=== PATIENT | male | born 1950 ===

== ENCOUNTER 2016-06-04 01:11 | Emergency (ER) | payer MEDICAID, OTHER ==
[2016-06-04 01:11] VITALS: PULSE 82; BMI 107.6
--- NOTE | 2016-06-04 02:50 | C.PDOC ---
History Of Present Illness 65 year old patient presents to the ED complaining of a laceration to his left eye eyebrow after falling prior to arrival. Patient admits to drinking alcohol tonight. Patient denies any vomiting. - HPI Time Seen by Provider: 06/04/16 02:12 Chief Complaint (Nursing): Trauma History Per: Patient History/Exam Limitations: intoxication Onset/Duration Of Symptoms: Hrs (prior to arrival) Severity: Moderate Pain Scale Rating Of: 4 Recent travel outside of the [place]: No Past Medical History Reviewed: Historical Data, Nursing Documentation, Vital Signs Vital Signs: Last Vital Signs Temp 98.1 F 06/04/16 06:30 Pulse 102 H 06/04/16 06:50 Resp 20 06/04/16 06:30 BP 127/78 06/04/16 06:30 Pulse Ox 99 06/04/16 06:50 - Medical History PMH: Anxiety, Atrial Fibrillation, CHF, Gastritis, HTN, Chronic Pain (Leg) - [facility] Procedures DETOXIFICATION SERVICES FOR SUBSTANCE ABUSE TREATMENT (09/28/15) INSERTION OF INFUSION DEV INTO SUP VENA CAVA, PERC APPROACH (07/03/15) MEASURE CARDIAC SAMPL & PRESSURE, BILATERAL, PERC (06/09/15) PLAIN RADIOGRAPHY OF R & L HEART USING L OSM CONTRAST (06/09/15) ULTRASONOGRAPHY OF RIGHT AND LEFT HEART, TRANSESOPHAGEAL (06/09/15) Family History: States: Unknown Family Hx - Social History Hx Tobacco Use: Yes Hx Alcohol Use: Yes Hx Substance Use: No - Immunization History Hx Tetanus Toxoid Vaccination: No Hx Influenza Vaccination: No Hx Pneumococcal Vaccination: No Review Of Systems Except As Marked, All Systems Reviewed And Found Negative. Constitutional: Positive for: Other (intoxicated) Gastrointestinal: Negative for: Vomiting Skin: Positive for: Other (laceration to left eyebrow) Physical Exam - Physical Exam Appears: Non-toxic, No Acute Distress, Other (intoxicated) Skin: Warm, Dry Head: Normacephalic, Laceration (3 cm stellate shaped laceration to the upper left eyebrow and lid region), Other ((-)periorbital ecchymosis (-)facial bone tenderness ) Eye(s): bilateral: EOMI (intact) Oral Mucosa: Moist Neck: Supple Chest: Symmetrical Cardiovascular: Rhythm Regular Respiratory: No Accessory Muscle Use Extremity: Normal ROM, No Pedal Edema, No Calf Tenderness, No Deformity, No Swelling ED Course And Treatment ECG: Interpreted By Me, Viewed By Me ECG Rhythm: Sinus Tachycardia (107) O2 Sat by Pulse Oximetry: 98 (RA) Pulse Ox Interpretation: Normal - CT Scan/US Head CT Other Rad Studies (CT/US): Read By Radiologist (Amanda Garner MD), Radiology Report Reviewed CT/US Interpretation: EXAM: CT Head Without Intravenous Contrast. CLINICAL HISTORY: 65 years old, male; Pain; Headache and other: Up left eye open; Patient HX: 11-06-15; Additional info: Fall, intoxication. TECHNIQUE: Axial computed tomography images of the head/brain without intravenous contrast. This CT exam. was performed using one or more of the following dose reduction techniques: automated exposure. control, adjustment of the mA and/or kV according to patient size, and/or use of iterative. reconstruction technique. EXAM DATE/TIME: 06/04/2016 2:30 AM. COMPARISON: Prior head CT of 11/06/2015. FINDINGS: LIMITATIONS: Exam is limited by mild to moderate streak/motion artifact. BRAIN: Stable small area of encephalomalacia in the right frontal lobe anteriorly. This could be. related to a chronic infarct or remote traumatic injury. Focal areas of low density seen in the basal. ganglia bilaterally, most compatible with multiple, bilateral old/chronic lacunar infarcts. Areas of. hypodensity in the white matter bilaterally, nonspecific in appearance, but most likely representing. chronic small vessel ischemic changes, in a patient of this age. Diffuse, age-related cortical atrophy. and ventriculomegaly. No significant acute abnormality identified. No acute hemorrhage seen within the brain. No acute. extra-axial fluid collections visualized. No evidence of significant mass effect within the brain. VENTRICLES : See above. BONES/JOINTS: Stable appearance of chronic fractures involving the nasal bones bilaterally and. the right medial orbital wall. No acute fractures are seen. SOFT TISSUES: Mild swelling in the left super orbital soft tissues. SINUSES: Visualized paranasal sinuses appear clear. MASTOID AIR CELLS : Stable small amount of fluid in the left mastoid air cells inferiorly, consistent. with minimal left mastoiditis. IMPRESSION: - No evidence of acute intracranial injury, allowing for motion artifact. - Old/chronic facial bone fractures, as described. - See above for remaining findings. Progress Note: Head CT taken. Medical Decision Making Medical Decision Making: At d/c pt found to be tachycardic at 138, but no complaints. no hand tremors, diaphoresis, Temp normal. Labs , EKG, IVF ordered along with librium and pt will be reevaluated later by Dr Mosley EKG reviewed mild sinus tach at 107 Pt is ambulatory with walker , AAOx3 and will be d/c home Disposition Counseled Patient/Family Regarding: Diagnosis, Need For Followup - Disposition Disposition: HOME/ ROUTINE Disposition Time: 06:35 Condition: STABLE Instructions: Head Injury (ED) - Clinical Impression Clinical Impression: Alcohol abuse, Facial laceration, Head injury - PA / ALLERGY AND IMMUNOLOGY SPECIALIST / Resident Statement MD/DO has reviewed & agrees with the documentation as recorded. - Scribe Statement The provider has reviewed the documentation as recorded by the Scribe Latia Templeton All medical record entries made by the Scribe were at my direction and personally dictated by me. I have reviewed the chart and agree that the record accurately reflects my personal performance of the history, physical exam, medical decision making, and the department course for this patient. I have also personally directed, reviewed, and agree with the discharge instructions and disposition.
--- NOTE | 2016-06-04 03:54 | CT ---
EXAM: CT Head Without Intravenous Contrast CLINICAL HISTORY: 65 years old, male; Pain; Headache and other: Up left eye open; Patient HX: 11-06-15; Additional info: Fall, intoxication TECHNIQUE: Axial computed tomography images of the head/brain without intravenous contrast. This CT exam was performed using one or more of the following dose reduction techniques: automated exposure control, adjustment of the mA and/or kV according to patient size, and/or use of iterative reconstruction technique. EXAM DATE/TIME: 06/04/2016 2:30 AM COMPARISON: Prior head CT of 11/06/2015 FINDINGS: LIMITATIONS: Exam is limited by mild to moderate streak/motion artifact. BRAIN: Stable small area of encephalomalacia in the right frontal lobe anteriorly. This could be related to a chronic infarct or remote traumatic injury. Focal areas of low density seen in the basal ganglia bilaterally, most compatible with multiple, bilateral old/chronic lacunar infarcts. Areas of hypodensity in the white matter bilaterally, nonspecific in appearance, but most likely representing chronic small vessel ischemic changes, in a patient of this age. Diffuse, age-related cortical atrophy and ventriculomegaly. No significant acute abnormality identified. No acute hemorrhage seen within the brain. No acute extra-axial fluid collections visualized. No evidence of significant mass effect within the brain. VENTRICLES: See above. BONES/JOINTS: Stable appearance of chronic fractures involving the nasal bones bilaterally and the right medial orbital wall. No acute fractures are seen. SOFT TISSUES: Mild swelling in the left super orbital soft tissues. SINUSES: Visualized paranasal sinuses appear clear. MASTOID AIR CELLS: Stable small amount of fluid in the left mastoid air cells inferiorly, consistent with minimal left mastoiditis. IMPRESSION: - No evidence of acute intracranial injury, allowing for motion artifact. - Old/chronic facial bone fractures, as described. - See above for remaining findings.
[2016-06-04] MEDS ORDERED: Sodium Chloride 0.9% 500 ML IV ONE (06:37)
[2016-06-04 06:49] VITALS: BP 127/78; RESP 20; TEMP 98.1
[2016-06-04 06:50] VITALS: PULSE 102
[2016-06-04 07:01] VITALS: O2SAT 98
--- NOTE | 2016-06-05 14:48 | CARD ---
APPROVED REPORT EKG Measurement Heart [id number] <Conclusion> Atrial flutter with variable AV block Left anterior fascicular block Septal infarct, age undetermined Abnormal ECG
== END 2016-06-04 07:28 | disposition home or self-care (01) ==
LOC: C.ER 01:11
DX: S01.112A Laceration without foreign body of left eyelid and periocular area, initial encounter (principal); W19.XXXA Unspecified fall, initial encounter; Y92.9 Unspecified place or not applicable

== ENCOUNTER 2016-06-20 21:57 | Observation (INO) | payer MEDICARE, OTHER, MEDICAID ==
[2016-06-20 21:58] VITALS: PULSE 82; BMI 107.6
--- NOTE | 2016-06-21 00:13 | C.PDOC ---
History Of Present Illness Patient is a 66 year old male brought in by EMS after he was found intoxicated and sleeping in the streets. Patient states he is homeless and admits to ETOH use today. Denies any physical complaints at this time. Chief Complaint (Nursing): Substance Abuse History Per: Patient, EMS History/Exam Limitations: no limitations Onset/Duration Of Symptoms: Hrs Current Symptoms Are (Timing): Still Present Suicide/Self Injury Attempted (Context): None Modifying Factor(s): Alcohol Past Medical History Reviewed: Historical Data, Nursing Documentation, Vital Signs Vital Signs: Last Vital Signs Temp 98.1 F 06/21/16 01:35 Pulse 79 06/21/16 01:35 Resp 20 06/21/16 01:35 BP 121/73 06/21/16 01:35 Pulse Ox 100 06/21/16 05:43 - Medical History PMH: Anxiety, Atrial Fibrillation, CHF, Gastritis, HTN, Chronic Pain (Leg) - [facility] Procedures DETOXIFICATION SERVICES FOR SUBSTANCE ABUSE TREATMENT (09/28/15) INSERTION OF INFUSION DEV INTO SUP VENA CAVA, PERC APPROACH (07/03/15) MEASURE CARDIAC SAMPL & PRESSURE, BILATERAL, PERC (06/09/15) PLAIN RADIOGRAPHY OF R & L HEART USING L OSM CONTRAST (06/09/15) ULTRASONOGRAPHY OF RIGHT AND LEFT HEART, TRANSESOPHAGEAL (06/09/15) Family History: States: Unknown Family Hx - Social History Hx Tobacco Use: Yes Hx Alcohol Use: Yes Hx Substance Use: No - Immunization History Hx Tetanus Toxoid Vaccination: No Hx Influenza Vaccination: No Hx Pneumococcal Vaccination: No Review Of Systems Constitutional: Negative for: Fever, Chills Gastrointestinal: Negative for: Nausea, Vomiting Neurological: Positive for: Other (Acute Intoxication) Physical Exam - Physical Exam Appears: Well, Non-toxic, Other (ETOH on breath) Skin: Normal Color, Warm, Dry Head: Atraumatic, Normacephalic Oral Mucosa: Moist Chest: Symmetrical, No Tenderness Cardiovascular: Rhythm Regular, No Murmur Respiratory: Normal Breath Sounds, No Rales, No Rhonchi, No Wheezing Gastrointestinal/Abdominal: Soft, No Tenderness Neurological/Psych: Oriented x3, Normal Speech, Normal Cognition ED Course And Treatment O2 Sat by Pulse Oximetry: 100 (Room air) Pulse Ox Interpretation: Normal ED OBSERVATION Discharge: Yes Date of observation admission: 06/21/16 Time of observation admission: 22:00 - Observation admission statement Patient is being placed in observation because:: Acute ETOH intoxication - Goals of Observation Goals of observation are:: Sobriety - Progress Note Progress Note: 06/21/16 05:41 Patient subsequently alert, conscious, orientated, for discharge with instruction of alcohol abuse. Disposition - Disposition Disposition: HOME/ ROUTINE Disposition Time: 06:00 Condition: STABLE - POA Present On Arrival: None - Clinical Impression Clinical Impression: Alcohol abuse - Scribe Statement The provider has reviewed the documentation as recorded by the Scribshay Joy All medical record entries made by the Linhibshay were at my direction and personally dictated by me. I have reviewed the chart and agree that the record accurately reflects my personal performance of the history, physical exam, medical decision making, and the department course for this patient. I have also personally directed, reviewed, and agree with the discharge instructions and disposition.
[2016-06-21 06:01] VITALS: O2SAT 96
[2016-06-21 06:03] VITALS: BP 103/55; PULSE 106; RESP 20; TEMP 98.5
== END 2016-06-21 05:38 | disposition home or self-care (01) ==
LOC: C.ER 21:57 → SUPCPDRO 21:57 → C.9OBSV 06-21 00:10
PROVIDERS: ADMIT Emergency Medicine; ATTEND Emergency Medicine
DX: F10.120 Alcohol abuse with intoxication, uncomplicated (principal); Y90.9 Presence of alcohol in blood, level not specified; Z59.0 Homelessness
CPT/HCPCS: 82948; 99285; G0378

== ENCOUNTER 2016-07-01 15:28 | Inpatient (IN) | payer MEDICARE, OTHER ==
[2016-07-01 15:45] VITALS: BMI 31.1
--- NOTE | 2016-07-01 18:41 | C.PDOC ---
History Of Present Illness 66 y/o male BIBA for public intoxication and malingering. Patient complains of chronic leg pain and swollen penile area for unknown amount of time. Patient with many ER visits for intoxication. Denies any trauma, fall, or injury. No other complaints at this time. Time Seen by Provider: 07/01/16 17:19 Chief Complaint (Nursing): Lower Extremity Problem/Injury History Per: Patient History/Exam Limitations: no limitations Onset/Duration Of Symptoms: Unknown Current Symptoms Are (Timing): Still Present Reports Recently: Seen In ED Recent travel outside of the [place]: No Past Medical History Reviewed: Historical Data, Nursing Documentation, Vital Signs Vital Signs: Last Vital Signs Temp 98.5 F 07/01/16 18:40 Pulse 126 H 07/01/16 23:10 Resp 19 07/01/16 23:10 BP 136/77 07/01/16 23:10 Pulse Ox 98 07/01/16 23:10 - Medical History PMH: Anxiety, Atrial Fibrillation, CHF, Gastritis, HTN, Chronic Pain (Leg) - [facility] Procedures DETOXIFICATION SERVICES FOR SUBSTANCE ABUSE TREATMENT (09/28/15) INSERTION OF INFUSION DEV INTO SUP VENA CAVA, PERC APPROACH (07/03/15) MEASURE CARDIAC SAMPL & PRESSURE, BILATERAL, PERC (06/09/15) PLAIN RADIOGRAPHY OF R & L HEART USING L OSM CONTRAST (06/09/15) ULTRASONOGRAPHY OF RIGHT AND LEFT HEART, TRANSESOPHAGEAL (06/09/15) Family History: States: Unknown Family Hx - Social History Hx Tobacco Use: Yes Hx Alcohol Use: Yes Hx Substance Use: No - Immunization History Hx Tetanus Toxoid Vaccination: No Hx Influenza Vaccination: No Hx Pneumococcal Vaccination: No Review Of Systems Except As Marked, All Systems Reviewed And Found Negative. Cardiovascular: Negative for: Chest Pain Respiratory: Negative for: Cough, Shortness of Breath Gastrointestinal: Negative for: Nausea, Vomiting Genitourinary: Positive for: Other (penile area swelling) Musculoskeletal: Positive for: Leg Pain (chronic) Skin: Negative for: Rash Physical Exam - Physical Exam Appears: No Acute Distress, Other (intoxicated) Skin: Warm, Dry Head: Atraumatic, Normacephalic Chest: Symmetrical Cardiovascular: Rhythm Regular Respiratory: Normal Breath Sounds, No Rales, No Rhonchi, No Wheezing Gastrointestinal/Abdominal: Soft, No Tenderness, No Guarding, No Rebound, Other (pitting edema to bilateral flanks) Back: No CVA Tenderness Male Genital: Other (grossly edematous penis and scrotum) Extremity: Normal ROM, Other (pitting edema to lower extremities with discoloration w/o erythema) Neurological/Psych: Oriented x3, Normal Speech ED Course And Treatment - Laboratory Results Result Diagrams: 07/01/16 19:25 07/01/16 19:25 Lab Interpretation: Abnormal (+ anemia,) ECG: Interpreted By Nd ECG Rhythm: Sinus Tachycardia ECG Interpretation: Abnormal Rate From EC O2 Sat by Pulse Oximetry: 98 (RA) Pulse Ox Interpretation: Normal - Radiology CXR: Interpreted by Nd CXR Interpretation: Yes: No Acute Disease - CT Scan/US CT Abdomen/Pelvis Other Rad Studies (CT/US): Read By Radiologist, Radiology Report Reviewed CT/US Interpretation: IMPRESSION: 1. There are small bilateral pleural effusions. 2. The heart as visualized appears mildly enlarged. 3. Partially imaged pericardial effusion appears to measure 24 mm in thickness on series 2, image 1. 4. There is mild abdominal pelvic ascites with mesenteric edema. There is distention of diffuse. anasarca. 5. Liver demonstrates nodular surface contour compatible with cirrhosis. 6. Spleen is slightly enlarged measuring 13.1 CM anteroposterior. 7. Abdominal aorta and branches demonstrate severe atherosclerotic calcification. No abdominal. aortic aneurysm. There is suggestion of a high grade stenosis near the origin of the superior. mesenteric artery. 8. Probable high grade stenoses of both common iliac arteries. Probable additional stenoses more. distally. Consider further evaluation of the abdominal aorta and lower extremities with dedicated CTA. if clinically indicated. 9. There is mild bilateral inguinal lymphadenopathy. Progress Note: CT abdomen/pelvis, EKG, CxR, bloodwork ordered. Pt given Lasix 20mg IVP. Reevaluation Time: 22:38 Reassessment Condition: Improved - Physician Consult Information Outcome Of Conversation: 2225: d/w Dr. Ashley- prior admission 04/12, ok to tele Obs Medical Decision Making Medical Decision Making: homeless alcoholic, many prior evals for same. chronic leg pains/reddness LOW susp of DVT/cellulitis CT vascular portions concerning for iliac stenosis which may be causing claudication and his leg weakness with minimal effort Tachycardia and ETOH level zero- concerning for withdrawal- Librium PO given, consider CIWA protocol. Daughter @ bedside encouraging long-term placement when acute phase hospitalization and stabilization completed. d-dimer elevated, LOW susp of PE considering all other pathology Lovenox SQ 1mg/kg given once, consider further tx or eval for PE PRN Disposition Doctor Will See Patient In The: Office Counseled Patient/Family Regarding: Studies Performed, Diagnosis - Disposition Referrals: Alcoholics Anonymous [Outside] [facility] [Outside] [facility] [Outside] Disposition: HOME/ ROUTINE Disposition Time: 18:41 Condition: GOOD Additional Instructions: follow-up in our outpatient Clinic as needed. Instructions: Abuse of Alcohol (ED) - Clinical Impression Clinical Impression: Alcohol abuse, Tachycardia, Chronic leg pain, Cirrhosis of liver with ascites - Scribe Statement The provider has reviewed the documentation as recorded by the Katie White Provider Scribe Attestation: All medical record entries made by the Scribe were at my direction and personally dictated by me. I have reviewed the chart and agree that the record accurately reflects my personal performance of the history, physical exam, medical decision making, and the department course for this patient. I have also personally directed, reviewed, and agree with the discharge instructions and disposition.
[2016-07-01 19:33] LABS: BASO # 0.1 K/uL (0.0-0.2); EOS % 0.7 % (0.0-4.0); HEMATOCRIT 31.2 % (35.0-51.0); LYMPH # 0.6 K/uL (1.0-4.3); LYMPH % 8.9 % (20.0-40.0); MEAN CELL VOLUME 78.7 fL (80.0-94.0); MEAN CORPUSCULAR HEMOGLOBIN 24.7 pg (27.0-31.0); MEAN CORPUSCULAR HGB CONC 31.4 g/dL (33.0-37.0); MEAN PLATELET VOLUME 8.2 fL (7.2-11.7); MONO # 0.8 K/uL (0.0-0.8); MONO % 11.3 % (0.0-10.0); NRBC % 0.1 % (0.0-2.0); PLATELET COUNT 261 K/uL (130-400); WHITE BLOOD COUNT 6.9 K/uL (4.8-10.8)
[2016-07-01 19:44] LABS: CHLORIDE 102 mmol/L (98-107)
[2016-07-01 19:45] LABS: POTASSIUM 4.6 mmol/L (3.6-5.2); SODIUM 136 mmol/L (132-148)
[2016-07-01 19:47] LABS: AST/SGOT 46 U/L (17-59); BILIRUBIN,TOTAL 1.6 mg/dL (0.2-1.3); CARBON DIOXIDE 21 mmol/L (22-30); GFR AFRICAN-AMERICAN > 60; TOTAL PROTEIN 7.6 g/dL (6.3-8.3)
[2016-07-01 19:48] LABS: ALCOHOL SERUM < 10 mg/dl (0-10); ALKALINE PHOSPHATASE 122 U/L (38-126); ALT/SGPT 22 U/L (21-72); BLOOD UREA NITROGEN 20 mg/dL (9-20); CALCIUM 8.7 mg/dl (8.6-10.4); GLUCOSE,RANDOM 90 mg/dL (75-110)
[2016-07-01 20:05] LABS: RBC URINE 2 /hpf (0-3); URINE BACTERIA RARE (<OCC); URINE BILIRUBIN NEGATIVE (NEGATIVE); URINE BLOOD NEGATIVE (NEGATIVE); URINE GLUCOSE (UA) NORMAL (Normal); URINE KETONE TRACE mg/dL (NEGATIVE); URINE LEUKOCYTE ESTERASE TRACE Leu/uL (Negative); URINE PROTEIN 1+ mg/dL (NEGATIVE); WBC URINE 4 /hpf (0-5)
[2016-07-01] MEDS ORDERED: Iohexol 300 100 ML IJ ONE (20:11)
[2016-07-01 20:21] LABS: THYROID STIMULATING HORMONE 0.97 mIU/L (0.46-4.68)
[2016-07-01 20:24] LABS: URINE COLOR YELLOW (YELLOW)
[2016-07-01 20:34] LABS: INR 1.6
--- NOTE | 2016-07-01 22:30 | CT ---
EXAM: CT Abdomen and Pelvis With Intravenous Contrast CLINICAL HISTORY: 66 years old, male; Pain; Abdominal pain; Generalized; Additional info: Abd ascites vs edema, alcoholic TECHNIQUE: Axial computed tomography images of the abdomen and pelvis with intravenous contrast. This CT exam was performed using one or more of the following dose reduction techniques: automated exposure control, adjustment of the mA and/or kV according to patient size, and/or use of iterative reconstruction technique. Coronal and sagittal reformatted images were created and reviewed. CONTRAST: 100 mL of omnipaque 300 administered intravenously. COMPARISON: CT - ABD PELVIS W/O PO OR IV CONT 09/28/2015 3:16:00 AM FINDINGS: Lower thorax: There are small bilateral pleural effusions. The heart as visualized appears mildly enlarged. Partially imaged pericardial effusion appears to measure 24 mm in thickness on series 2, image 1. ABDOMEN: Liver: Liver demonstrates nodular surface contour compatible with cirrhosis. Gallbladder and bile ducts: Unremarkable. No calcified stones. No ductal dilation. Pancreas: The pancreas is normal. No ductal dilation. Spleen: Spleen is slightly enlarged measuring 13.1 CM anteroposterior. Adrenals: The adrenal glands are normal. Kidneys and ureters: The kidneys are normal. No hydronephrosis. Stomach and bowel: Stomach is decompressed. There are least 2 small fat containing periumbilical hernias. One of these also contains a slightly involved nonobstructed bowel loop. There is no evidence of intestinal obstruction. No mucosal thickening. Appendix: No findings to suggest acute appendicitis. PELVIS: Bladder: Bladder is decompressed. Reproductive: The prostate gland and seminal vesicles are normal. ABDOMEN and PELVIS: Intraperitoneal space: There is mild abdominal pelvic ascites with mesenteric edema. There is distention of diffuse anasarca. There is no free intraperitoneal air. Bones/joints: There are moderate degenerative changes present. There is mild diffuse osteopenia. No acute fracture. No dislocation. Soft tissues: Unremarkable. Vasculature: Abdominal aorta and branches demonstrate severe atherosclerotic calcification. No abdominal aortic aneurysm. There is suggestion of a high grade stenosis near the origin of the superior mesenteric artery. Probable high grade stenoses of both common iliac arteries. Probable additional stenoses more distally. Consider further evaluation of the abdominal aorta and lower extremities with dedicated CTA if clinically indicated. Lymph nodes: There is mild bilateral inguinal lymphadenopathy. IMPRESSION: 1. There are small bilateral pleural effusions. 2. The heart as visualized appears mildly enlarged. 3. Partially imaged pericardial effusion appears to measure 24 mm in thickness on series 2, image 1. 4. There is mild abdominal pelvic ascites with mesenteric edema. There is distention of diffuse anasarca. 5. Liver demonstrates nodular surface contour compatible with cirrhosis. 6. Spleen is slightly enlarged measuring 13.1 CM anteroposterior. 7. Abdominal aorta and branches demonstrate severe atherosclerotic calcification. No abdominal aortic aneurysm. There is suggestion of a high grade stenosis near the origin of the superior mesenteric artery. 8. Probable high grade stenoses of both common iliac arteries. Probable additional stenoses more distally. Consider further evaluation of the abdominal aorta and lower extremities with dedicated CTA if clinically indicated. 9. There is mild bilateral inguinal lymphadenopathy. S.
[2016-07-01] MEDS ORDERED: Enoxaparin 40 mg Syringe SC STA (23:13)
[2016-07-01] MEDS ORDERED: Enoxaparin 40 mg Syringe ONE (23:27)
[2016-07-01] MEDS ORDERED: Enoxaparin 30 mg Syringe ONE (23:27)
[2016-07-01 23:50] LABS: NEUTROPHIL 72 % (50-75); TOTAL CELLS COUNTED 100
[2016-07-01 23:51] LABS: GIANT PLATELETS PRESENT; LARGE PLATELETS PRESENT; SMUDGE CELLS PRESENT
--- NOTE | 2016-07-02 08:43 | RAD ---
PROCEDURE: CHEST RADIOGRAPH, 1 VIEW HISTORY: SOB COMPARISON: 04/05/2016 FINDINGS: LUNGS: Mild venous congestion. PLEURA: No pneumothorax or pleural fluid seen. CARDIOVASCULAR: Cardiomegaly. Calcification at the aortic knob. OSSEOUS STRUCTURES: Fracture deformity of the left proximal humerus. VISUALIZED UPPER ABDOMEN: Normal. OTHER FINDINGS: None. IMPRESSION: Mild venous congestion. Cardiomegaly. Fracture deformity of the left proximal humerus.
--- NOTE | 2016-07-02 10:22 | CARD ---
APPROVED REPORT EKG Measurement Heart [id number] CA 232P [id number] <Conclusion> Sinus tachycardia with 1st degree AV block Right superior axis deviation Anterior infarct, age undetermined Abnormal ECG
--- NOTE | 2016-07-02 14:16 | CP.PCM.HP ---
History of Present Illness - History of Present Illness History of Present Illness: COMPREHENSIVE HISTORY & PHYSICAL EXAM HPI ONE OF THE MULTIPLE ADMISSION FOR THIS PT. PT WAS EVALUATED IN ER WITH MULTIPLE MEDICAL PROBLEMS , NON COMPLIANT AND "HOMELESS" WITH SEVERE ALCOHOL PROBLEM . CURRENTLY PT'S FAMILY MEMBERS ARE CONCERNED AND WANTS TELETYPESETTER MONITOR PLACEMENT PAST HIST. CAD /HTN/CRROHSIS OF LIVER/SEVERE GEN. ATHEROSCLEROSIS INVOLVING LEFT SUBCLAVIAN , LOWER EXT AND POSSILBE SUP. MESENTRIC ARTERY./A. FIB/ GEN ANASARCA PERSONAL HIST: Smoking. Y Alcohol. Y Allergy N Travel_- . FAMILY HIST : ROS : Constitutional: WT. GAIN SOB EDEMA OF LEGS Eyes: Negative for redness, swelling, itching, discharge, vision changes, blurry vision, double vision, glaucoma, cataracts, Ears: Negative for hearing loss, ringing, , tinnitus, vertigo Nose: Negative for rhinorrhea, stuffiness, sniffing, itching, postnasal drip, discoloration, nasal congestion and epistaxis. Throat: Negative for throat clearing, sore throat, hoarseness, difficulty swallowing and difficulty speaking. Respiratory: SOB WHEEZING Cardiovascular: Negative for chest pain, palpitations, POS orthopnea, PND, Edema of legs, leg cramps, NO angina, claudication, , irregular heartbeat, Neurology: Negative for irritability, muscle weakness, numbness and tingling, seizures, tremors, migraines, slurred speech, syncope, memory loss, mood changes , recurrent headaches Gastrointestinal ABD. DISTENSION EXTENDING TO GENITALIA Genitourinary: Negative for frequent urination, hematuria, discharge, incontinence, urinary retention, frequent UTI, Psychiatric: Negative for depression, anxiety/panic, suicidal tendencies, Musculoskeletal: Negative for swollen joints, back pain, , neck pain, morning stiffness of joints, . Skin: Negative for rash, ulcers, itching, dry skin and pigmented lesions. P/E: Constitutional: Appears stated age and in no apparent distress. Head: Normocephalic. Ears: External ear canals patent without inflammation. Tympanic membranes intact with normal light reflex and landmark. Eyes: Pupils are central, bilaterally equal, symmetrical and reacts to light with normal movements and no icterus or pallor. Nose: External nares are patent. Mucosa is pink Mouth-Throat: Good general appearance and condition. No post-pharyngeal/oropharyngeal erythema and tonsillar hypertrophy. Good dental hygiene. Neck-Lymphatic: Neck is supple with normal ROM, no thyromegaly, lymph nodes or masses. JVD is normal with no carotid bruit. Lungs: BASAL RALES Cardiovascular: S1 and S2 are normal with no murmurs, gallops and rub. GI Exam: ASCITES WITH SWELLING OF GENITALIA Neurology: Higher function and all cranial nerves intact, with no gross motor or sensory deficit. Superficial and deep reflexes are normal with downwards planters. No cerebellar deficit with normal gait. Musculoskeletal: No tender spots with normal curvature of the spine with no swelling or restricted ROM of the small and large joints. Extremities: Homans sign absent. Intact pulses with pitting edema, calf tenderness or skin color changes. Skin: No rash, eruptions or abnormal skin pigmentation LAB/RADIOLOGY: ASSESMENT : CIRROHSIS OF LIVER WITH PORTAL HTN CAD/HTN/A. FIB GEN. ANASARCA PLAN: SEE ORDERS Present on Admission - Present on Admission Any Indicators Present on Admission: No Past Patient History - Infectious Disease Hx of Infectious Diseases: None - Past Medical History & Family History Past Medical History?: Yes - Past Social History Smoking Status: Light Smoker < 10 Cigarettes Daily - CARDIAC Hx Atrial Fibrillation: Yes Hx Congestive Heart Failure: Yes Hx Hypertension: Yes - PULMONARY Hx Respiratory Disorders: No - NEUROLOGICAL Hx Neurological Disorder: No - HEENT Hx HEENT Problems: No - RENAL Hx Chronic Kidney Disease: No - ENDOCRINE/METABOLIC Hx Endocrine Disorders: No - HEMATOLOGICAL/ONCOLOGICAL Hx Blood Disorders: No Hx Blood Transfusions: No - INTEGUMENTARY Hx Dermatological Problems: No - MUSCULOSKELETAL/RHEUMATOLOGICAL Hx Falls: Yes - GASTROINTESTINAL Hx Gastritis: Yes - GENITOURINARY/GYNECOLOGICAL Hx Genitourinary Disorders: No - PSYCHIATRIC Hx Substance Use: No - SURGICAL HISTORY Hx Surgeries: Yes Hx Herniorrhaphy: Yes Other/Comment: abdominal surgery. no further information added by patient - ANESTHESIA Hx Anesthesia: Yes Hx Anesthesia Reactions: No Hx Malignant Hyperthermia: No Meds Allergies/Adverse Reactions: Allergies Allergy/AdvReac Type Severity Reaction Status Date / Time Penicillins Allergy RASH Verified 07/01/16 15:44 Results - Vital Signs Recent Vital Signs: Last Vital Signs Temp 98.6 F 07/02/16 08:00 Pulse 130 H 07/02/16 08:00 Resp 20 07/02/16 08:00 BP 119/71 07/02/16 12:04 Pulse Ox 95 07/02/16 08:00 - Labs Result Diagrams: 07/01/16 19:25 07/01/16 19:25
[2016-07-02] MEDS ORDERED: Enoxaparin 40 mg Syringe SC SCH ×4 (15:28→22:00)
[2016-07-02] MEDS: Albuterol-Ipratrop 3 mg / 0.5 (3 ml) UD INH SCH ×2 (16:45→19:45)
[2016-07-02] MEDS: Digoxin 250 mcg (0.25 mg) Tab PO SCH (17:35)
--- NOTE | 2016-07-02 22:58 | VASCLAB ---
PROCEDURE: Lower Extremity Venous Duplex Exam. HISTORY: DVT PRIORS: None. TECHNIQUE: Bilateral common femoral, femoral, popliteal and posterior tibial, peroneal and great saphenous veins were evaluated. Flow was assessed with color Doppler, compressibility, assessment of phasic flow and augmentation response. Report prepared by NOBLE Mcclain, RVT FINDINGS: RIGHT: 1. Common Femoral Vein: 1.1. Compressibility - Fully compressible: Thrombus - None : Flow - Phasic: Augmentation -Normal: Reflux - None. 2. Femoral Vein: 2.1. Compressibility - Fully compressible: Thrombus - None : Flow - Phasic: Augmentation -Normal: Reflux - None. 3. Popliteal Vein: 3.1. Compressibility - Fully compressible: Thrombus - None : Flow - Phasic: Augmentation -Normal: Reflux - None. 4. Posterior Tibial Vein: 4.1. Compressibility - Fully compressible: Thrombus - None: Flow - Phasic: Augmentation -Normal: Reflux - None. 5. Peroneal Vein: 5.1. Compressibility - Fully compressible: Thrombus - None: Flow - Phasic: Augmentation -Normal: Reflux - None. 6. Great Saphenous Vein: 6.1. Compressibility - Fully compressible: Thrombus - None: Flow - Phasic: Augmentation - Normal: Reflux - None. LEFT: 1. Common Femoral Vein: 1.1. Compressibility - Fully compressible: Thrombus - None: Flow - Phasic: Augmentation -Normal: Reflux - None. 2. Femoral Vein: 2.1. Compressibility - Fully compressible: Thrombus - None: Flow - Phasic: Augmentation -Normal: Reflux - None. 3. Popliteal Vein: 3.1. Compressibility - Fully compressible: Thrombus - None : Flow - Phasic: Augmentation -Normal: Reflux - None. 4. Posterior Tibial Vein: 4.1. Compressibility - Fully compressible: Thrombus - None: Flow - Phasic: Augmentation -Normal: Reflux - None. 5. Peroneal Vein: 5.1. Compressibility - Fully compressible: Thrombus - None: Flow - Phasic: Augmentation -Normal: Reflux - None. 6. Great Saphenous Vein: 6.1. Compressibility - Fully compressible: Thrombus - None: Flow - Phasic: Augmentation - Normal: Reflux - None. OTHER FINDINGS: Right: None significant. Left: None significant. IMPRESSION: Right: No evidence of deep or superficial vein thrombosis of the right lower extremity. Normal valve function noted of the right side. Left: No evidence of deep or superficial vein thrombosis of the left lower extremity. Normal valve function noted of the left side.
[2016-07-03] MEDS: Albuterol-Ipratrop 3 mg / 0.5 (3 ml) UD INH SCH ×4 (02:33→20:20)
--- NOTE | 2016-07-03 10:31 | NM ---
COMPARISON: 07/01/2016. TECHNIQUE: 5.1 mCi technetium 99-m Xe-133 Gas. 10.2 mCI technetium 99-m MAA administered intravenously. FINDINGS: VENTILATION COMPONENT: Heterogeneous ventilation with mild air trapping particularly in the right lung. PERFUSION COMPONENT: Focal subsegmental defect right upper lobe. No other suspicious findings. IMPRESSION: Low probability ventilation perfusion scan for pulmonary embolism.
[2016-07-03] MEDS: Enoxaparin 40 mg Syringe SC SCH (11:00)
--- NOTE | 2016-07-03 12:54 | CP.PCM.PN ---
Subjective - Date & Time of Evaluation Date of Evaluation: 07/03/16 Time of Evaluation: 12:52 - Subjective Subjective: CHIEF COMPLAINTS TODAY : LEG AND SCROTAL SWELLING NO SOB ROS. HEENT : N. Resp : No cough, wheezing ,pleuritic CP ,or hemoptysis Cardio : No anginal CP, PND, orthopnea, palpitation GI : No abd.pain, n/v ,diarrhea or GI bleeding . TRANSPORTATION OPERATIONS MANAGER : No headache, vertigo, focal deficit. Musculoskel : No joint swelling , Derm : No rash Psych : Normal affect. Ext : POS swelling ,calf pain PE. Pt. is alert awake in no distress. V.S As noted in the chart Head ,ear nose,throat and eyes : Normal. Neck : Supple with normal carotids. Lungs:RONCHI Heart : S1 & S2 normal with S4. No murmur. Abd : Soft non tender with normal bowel sounds. Neuro : Moves all ext. with no localized deficit. Ext : +2 EDEMA EXTENDING TO SCROTUM Derm : No rashes or decubitus ulcer. LABS/RADIOLOGY: ASSESSMENT/PLAN : ADD ALDACTONE COSMETOLOGY INSTRUCTOR CARE Objective - Vital Signs/Intake and Output Vital Signs (last 24 hours): Temp Pulse Resp BP Pulse Ox 98.0 F 70 20 125/71 92 L 07/03/16 08:43 07/03/16 11:08 07/03/16 08:43 07/03/16 09:43 07/03/16 11:08 Intake and Output: 07/03/16 07/03/16 11:59 23:59 Intake Total 310 Balance 310 - Medications Medications: Current Medications Albuterol/Ipratropium (Duoneb 3 Mg/0.5 Mg (3 Ml) Ud) 3 ml INH RQ6 [facility] Last Admin: 07/03/16 07:56 Dose: 3 ml Digoxin (Lanoxin) 0.25 mg PO DAILY@1800 [facility] Last Admin: 07/02/16 17:35 Dose: 0.25 mg Diltiazem HCl (Cardizem) 30 mg PO Q8 [facility] Last Admin: 07/03/16 05:16 Dose: 30 mg Enoxaparin Sodium (Lovenox) 40 mg SC DAILY [facility] Last Admin: 07/03/16 11:00 Dose: 40 mg Furosemide (Lasix) 40 mg IVP DAILY [facility] Last Admin: 07/03/16 09:43 Dose: 40 mg Metoprolol Tartrate (Lopressor) 50 mg PO BID [facility] Last Admin: 07/03/16 09:42 Dose: 50 mg Spironolactone (Aldactone) 25 mg PO BID [facility] - Labs Labs: PT 18.3 SECONDS (9.7-12.2) H 07/01/16 20:01 INR 1.6 07/01/16 20:01 APTT 29 SECONDS (21-34) 07/01/16 20:01
[2016-07-03 14:31] LABS: BASO # 0.1 K/uL (0.0-0.2); BASO % 0.8 % (0.0-2.0); EOS % 0.7 % (0.0-4.0); HEMATOCRIT 31.2 % (35.0-51.0); LYMPH # 0.7 K/uL (1.0-4.3); LYMPH % 10.4 % (20.0-40.0); MEAN CORPUSCULAR HEMOGLOBIN 25.2 pg (27.0-31.0); MEAN CORPUSCULAR HGB CONC 31.1 g/dL (33.0-37.0); MEAN PLATELET VOLUME 8.5 fL (7.2-11.7); MONO # 0.9 K/uL (0.0-0.8); MONO % 13.7 % (0.0-10.0); RED CELL DISTRIBUTION WIDTH 19.8 % (11.5-14.5); WHITE BLOOD COUNT 6.8 K/uL (4.8-10.8)
[2016-07-03 14:48] LABS: CHLORIDE 99 mmol/L (98-107); POTASSIUM 3.9 mmol/L (3.6-5.2); SODIUM 135 mmol/L (132-148)
[2016-07-03 14:49] LABS: ALKALINE PHOSPHATASE 118 U/L (38-126); ALT/SGPT 22 U/L (21-72); AST/SGOT 53 U/L (17-59); BILIRUBIN,TOTAL 1.3 mg/dL (0.2-1.3); BLOOD UREA NITROGEN 25 mg/dL (9-20); CALCIUM 8.7 mg/dl (8.6-10.4); CARBON DIOXIDE 21 mmol/L (22-30); GFR AFRICAN-AMERICAN > 60; GLUCOSE,RANDOM 119 mg/dL (75-110); TOTAL PROTEIN 7.7 g/dL (6.3-8.3)
[2016-07-03] MEDS: Digoxin 250 mcg (0.25 mg) Tab PO SCH (18:22)
[2016-07-04] MEDS: Albuterol-Ipratrop 3 mg / 0.5 (3 ml) UD INH SCH ×4 (01:22→19:38)
[2016-07-04 08:52] LABS: BASO # 0.1 K/uL (0.0-0.2); BASO % 0.7 % (0.0-2.0); EOS # 0.1 K/uL (0.0-0.7); EOS % 1.4 % (0.0-4.0); HEMATOCRIT 30.2 % (35.0-51.0); LYMPH # 0.8 K/uL (1.0-4.3); LYMPH % 10.1 % (20.0-40.0); MEAN CELL VOLUME 80.7 fL (80.0-94.0); MEAN CORPUSCULAR HGB CONC 30.9 g/dL (33.0-37.0); MEAN PLATELET VOLUME 8.5 fL (7.2-11.7); MONO # 0.9 K/uL (0.0-0.8); MONO % 11.4 % (0.0-10.0); NRBC % 0.1 % (0.0-2.0); RED CELL DISTRIBUTION WIDTH 19.9 % (11.5-14.5); WHITE BLOOD COUNT 7.8 K/uL (4.8-10.8)
[2016-07-04 09:06] LABS: CHLORIDE 101 mmol/L (98-107)
[2016-07-04 09:07] LABS: POTASSIUM 3.6 mmol/L (3.6-5.2); SODIUM 136 mmol/L (132-148)
[2016-07-04 09:09] LABS: ALB/GLOB RATIO 0.9 (1.0-2.1); BILIRUBIN,TOTAL 1.2 mg/dL (0.2-1.3); CARBON DIOXIDE 23 mmol/L (22-30); GFR AFRICAN-AMERICAN > 60; TOTAL PROTEIN 7.5 g/dL (6.3-8.3)
[2016-07-04 09:10] LABS: ALKALINE PHOSPHATASE 119 U/L (38-126); ALT/SGPT 26 U/L (21-72); AST/SGOT 61 U/L (17-59); BLOOD UREA NITROGEN 24 mg/dL (9-20); CALCIUM 8.3 mg/dl (8.6-10.4); GLUCOSE,RANDOM 104 mg/dL (75-110)
[2016-07-04] MEDS: Enoxaparin 40 mg Syringe SC SCH (10:25)
--- NOTE | 2016-07-04 13:10 | CP.PCM.PN ---
Subjective - Date & Time of Evaluation Date of Evaluation: 07/04/16 Time of Evaluation: 13:09 - Subjective Subjective: CHIEF COMPLAINTS TODAY : LEG AND SCROTAL SWELLING NO SOB ROS. HEENT : N. Resp : No cough, wheezing ,pleuritic CP ,or hemoptysis Cardio : No anginal CP, PND, orthopnea, palpitation GI : No abd.pain, n/v ,diarrhea or GI bleeding . CLINICAL SUPERVISOR : No headache, vertigo, focal deficit. Musculoskel : No joint swelling , Derm : No rash Psych : Normal affect. Ext : POS swelling ,calf pain PE. Pt. is alert awake in no distress. V.S As noted in the chart Head ,ear nose,throat and eyes : Normal. Neck : Supple with normal carotids. Lungs:RONCHI Heart : S1 & S2 normal with S4. No murmur. Abd : Soft non tender with normal bowel sounds. Neuro : Moves all ext. with no localized deficit. Ext : +2 EDEMA EXTENDING TO SCROTUM Derm : No rashes or decubitus ulcer. LABS/RADIOLOGY: ASSESSMENT/PLAN : ADD ALDACTONE POWER TECHNICIAN CARE Objective - Vital Signs/Intake and Output Vital Signs (last 24 hours): Temp Pulse Resp BP Pulse Ox 98.9 F 93 H 20 149/92 H 100 07/04/16 08:56 07/04/16 08:56 07/04/16 08:56 07/04/16 10:24 07/04/16 08:56 Intake and Output: 07/04/16 07/04/16 11:59 23:59 Intake Total 100 Balance 100 - Medications Medications: Current Medications Albuterol/Ipratropium (Duoneb 3 Mg/0.5 Mg (3 Ml) Ud) 3 ml INH RQ6 [facility] Last Admin: 07/04/16 07:37 Dose: 3 ml Digoxin (Lanoxin) 0.25 mg PO DAILY@1800 [facility] Last Admin: 07/03/16 18:22 Dose: 0.25 mg Diltiazem HCl (Cardizem) 30 mg PO Q8 [facility] Last Admin: 07/04/16 05:32 Dose: 30 mg Enoxaparin Sodium (Lovenox) 40 mg SC DAILY [facility] Last Admin: 07/04/16 10:25 Dose: 40 mg Furosemide (Lasix) 40 mg IVP DAILY [facility] Last Admin: 05/11/17 10:24 Dose: 40 mg Metoprolol Tartrate (Lopressor) 50 mg PO BID [facility] Last Admin: 07/04/16 10:25 Dose: 50 mg Spironolactone (Aldactone) 25 mg PO BID [facility] Last Admin: 07/04/16 10:24 Dose: 25 mg - Labs Labs: 07/04/16 08:41 07/04/16 08:41 PT 18.3 SECONDS (9.7-12.2) H 07/01/16 20:01 INR 1.6 07/01/16 20:01 APTT 29 SECONDS (21-34) 07/01/16 20:01
--- NOTE | 2016-07-04 13:55 | CP.PCM.DIS ---
Provider - Provider Date of Admission: 07/01/16 22:43 Attending physician: Grover Ashley MD Time Spent in preparation of Discharge (in minutes): 30 Hospital Course - Lab Results Lab Results: Most Recent Lab Values WBC 7.8 K/uL (4.8-10.8) 07/04/16 08:41 RBC 3.74 Mil/uL (4.40-5.90) L 07/04/16 08:41 Hgb 9.3 g/dL (12.0-18.0) L 07/04/16 08:41 Hct 30.2 % (35.0-51.0) L 07/04/16 08:41 MCV 80.7 fL (80.0-94.0) 07/04/16 08:41 MCH 25.0 pg (27.0-31.0) L 07/04/16 08:41 MCHC 30.9 g/dL (33.0-37.0) L 07/04/16 08:41 RDW 19.9 % (11.5-14.5) H 07/04/16 08:41 Plt Count 229 K/uL (130-400) 07/04/16 08:41 MPV 8.5 fL (7.2-11.7) 07/04/16 08:41 Neut % (Auto) 76.4 % (50.0-75.0) H 07/04/16 08:41 Lymph % (Auto) 10.1 % (20.0-40.0) L 07/04/16 08:41 Kern % (Auto) 11.4 % (0.0-10.0) H 07/04/16 08:41 Eos % (Auto) 1.4 % (0.0-4.0) 07/04/16 08:41 Baso % (Auto) 0.7 % (0.0-2.0) 07/04/16 08:41 Neut # 6.0 K/uL (1.8-7.0) 07/04/16 08:41 Lymph # 0.8 K/uL (1.0-4.3) L 07/04/16 08:41 Kern # 0.9 K/uL (0.0-0.8) H 07/04/16 08:41 Eos # 0.1 K/uL (0.0-0.7) 07/04/16 08:41 Baso # 0.1 K/uL (0.0-0.2) 07/04/16 08:41 Neutrophils % (Manual) 72 % (50-75) 07/01/16 19:25 Band Neutrophils % 5 % (0-2) H 07/01/16 19:25 Lymphocytes % (Manual) 11 % (20-40) L 07/01/16 19:25 Monocytes % (Manual) 12 % (0-10) H 07/01/16 19:25 Hypersegmented Polys Present 07/01/16 19:25 Smudge Cells Present 07/01/16 19:25 Toxic Granulation Present 07/01/16 19:25 Platelet Estimate Normal (NORMAL) 07/01/16 19:25 Large Platelets Present 07/01/16 19:25 Giant Platelets Present 07/01/16 19:25 Polychromasia Slight 07/01/16 19:25 Poikilocytosis (manual Slight 07/01/16 19:25 Anisocytosis (manual) Slight 07/01/16 19:25 Macrocytosis (manual) Slight 07/01/16 19:25 PT 18.3 SECONDS (9.7-12.2) H 07/01/16 20:01 INR 1.6 07/01/16 20:01 APTT 29 SECONDS (21-34) 07/01/16 20:01 D-Dimer, Quantitative 3052 ng/mlDDU (0-243) H 07/01/16 20:01 Sodium 136 mmol/L (132-148) 07/04/16 08:41 Potassium 3.6 mmol/L (3.6-5.2) 07/04/16 08:41 Chloride 101 mmol/L (98-107) 07/04/16 08:41 Carbon Dioxide 23 mmol/L (22-30) 07/04/16 08:41 Anion Gap 16 (10-20) 07/04/16 08:41 BUN 24 mg/dL (9-20) H 07/04/16 08:41 Creatinine 1.1 MG/DL (0.8-1.5) 07/04/16 08:41 Est GFR ( Amer) > 60 07/04/16 08:41 Est GFR (Non-Af Amer) > 60 07/04/16 08:41 Random Glucose 104 mg/dL (75-110) 07/04/16 08:41 Calcium 8.3 mg/dl (8.6-10.4) L 07/04/16 08:41 Total Bilirubin 1.2 mg/dL (0.2-1.3) 07/04/16 08:41 AST 61 U/L (17-59) H 07/04/16 08:41 ALT 26 U/L (21-72) 07/04/16 08:41 Alkaline Phosphatase 119 U/L (38-126) 07/04/16 08:41 Troponin I 0.0250 ng/mL (0.00-0.120) 07/01/16 19:25 NT-Pro-B Natriuret Pep 5340 pg/mL (0-900) H 07/01/16 19:25 Total Protein 7.5 g/dL (6.3-8.3) 07/04/16 08:41 Albumin 3.5 g/dL (3.5-5.0) 07/04/16 08:41 Globulin 4.0 gm/dL (2.2-3.9) H 07/04/16 08:41 Albumin/Globulin Ratio 0.9 (1.0-2.1) L 07/04/16 08:41 TSH 3rd Generation 0.97 mIU/L (0.46-4.68) 07/01/16 19:25 Urine Color Yellow (YELLOW) 07/01/16 19:25 Urine Clarity Hazy (Clear) 07/01/16 19:25 Urine pH 5.0 (5.0-8.0) 07/01/16 19:25 Ur Specific Golden 1.024 (1.003-1.030) 07/01/16 19:25 Urine Protein 1+ mg/dL (NEGATIVE) H 07/01/16 19:25 Urine Glucose (UA) Normal mg/dL (Normal) 07/01/16 19:25 Urine Ketones Trace mg/dL (NEGATIVE) 07/01/16 19:25 Urine Blood Negative (NEGATIVE) 07/01/16 19:25 Urine Nitrate Negative (NEGATIVE) 07/01/16 19:25 Urine Bilirubin Negative (NEGATIVE) 07/01/16 19:25 Urine Urobilinogen 4.0 mg/dL (0.2-1.0) 07/01/16 19:25 Ur Leukocyte Esterase Trace Mahad/uL (Negative) 07/01/16 19:25 Urine WBC (Auto) 4 /hpf (0-5) 07/01/16 19:25 Urine RBC (Auto) 2 /hpf (0-3) 07/01/16 19:25 Ur Squamous Epith Cells 1 /hpf (0-5) 07/01/16 19:25 Urine Bacteria Rare (<OCC) 07/01/16 19:25 Hyaline Casts 3-5 /lpf (0-2) H 07/01/16 19:25 Urine Opiates Screen Negative (NEGATIVE) 07/01/16 19:25 Urine Methadone Screen Negative (NEGATIVE) 07/01/16 19:25 Ur Barbiturates Screen Negative (NEGATIVE) 07/01/16 19:25 Ur Phencyclidine Scrn Negative (NEGATIVE) 07/01/16 19:25 Ur Amphetamines Screen Negative (NEGATIVE) 07/01/16 19:25 U Benzodiazepines Scrn Negative (NEGATIVE) 07/01/16 19:25 U Oth Cocaine Metabols Negative (NEGATIVE) 07/01/16 19:25 U Cannabinoids Screen Negative (NEGATIVE) 07/01/16 19:25 Alcohol, Quantitative < 10 mg/dl (0-10) 07/01/16 19:25 - Hospital Course Hospital Course: ONE OF THE MULTIPLE ADMISSION FOR THIS PT. PT WAS EVALUATED IN ER WITH MULTIPLE MEDICAL PROBLEMS , NON COMPLIANT AND "HOMELESS" WITH SEVERE ALCOHOL PROBLEM . CURRENTLY PT'S FAMILY MEMBERS ARE CONCERNED AND WANTS MCC PLACEMENT PAST HIST. CAD /HTN/CRROHSIS OF LIVER/SEVERE GEN. ATHEROSCLEROSIS INVOLVING LEFT SUBCLAVIAN , LOWER EXT AND POSSILBE SUP. MESENTRIC ARTERY./A. FIB/ GEN ANASARCA PERSONAL HIST: Smoking. Y Alcohol. Y Allergy N Travel_- PT. WAS TREATED WITH IV ARNOLD AND ALDACTONE PT IMPROVED \\PT WAS TRANSFERRED TO [facility] ADDENDUM PT WAS NEXT DAY TRANSFERRED TO [facility] FAMILY WAS DEBATING WHICH [facility] TO GO Discharge Plan - Follow Up Plan Condition: GOOD Disposition: HOME/ ROUTINE Instructions: Heart Failure (DC), Cirrhosis (DC), Heart Healthy Diet (DC), Alcohol Intoxication (DC), Abuse of Alcohol (DC), Ascites (DC) Additional Instructions: follow-up in our outpatient Clinic as needed. Referrals: Alcoholics Anonymous [Outside] [facility] [Outside] [place] [facility] [Outside]
[2016-07-04] MEDS: Digoxin 250 mcg (0.25 mg) Tab PO SCH (17:55)
[2016-07-04 17:57] VITALS: PULSE 84
[2016-07-05] MEDS: Albuterol-Ipratrop 3 mg / 0.5 (3 ml) UD INH SCH ×3 (01:06→13:41)
[2016-07-05 08:25] LABS: BASO % 0.4 % (0.0-2.0); EOS # 0.1 K/uL (0.0-0.7); EOS % 1.3 % (0.0-4.0); LYMPH # 0.7 K/uL (1.0-4.3); LYMPH % 10.9 % (20.0-40.0); MEAN CELL VOLUME 79.5 fL (80.0-94.0); MEAN CORPUSCULAR HGB CONC 31.4 g/dL (33.0-37.0); MEAN PLATELET VOLUME 8.3 fL (7.2-11.7); MONO # 0.9 K/uL (0.0-0.8); MONO % 14.6 % (0.0-10.0); NRBC % 0.1 % (0.0-2.0); RED CELL DISTRIBUTION WIDTH 19.8 % (11.5-14.5); WHITE BLOOD COUNT 6.3 K/uL (4.8-10.8)
[2016-07-05 08:47] LABS: CHLORIDE 101 mmol/L (98-107); SODIUM 136 mmol/L (132-148)
[2016-07-05 08:48] LABS: POTASSIUM 3.6 mmol/L (3.6-5.2)
[2016-07-05 08:49] LABS: GFR AFRICAN-AMERICAN > 60
[2016-07-05 08:50] LABS: ALB/GLOB RATIO 0.8 (1.0-2.1); ALKALINE PHOSPHATASE 110 U/L (38-126); ALT/SGPT 30 U/L (21-72); AST/SGOT 56 U/L (17-59); BLOOD UREA NITROGEN 21 mg/dL (9-20); CARBON DIOXIDE 26 mmol/L (22-30); GLUCOSE,RANDOM 91 mg/dL (75-110)
[2016-07-05 08:51] LABS: CALCIUM 8.1 mg/dl (8.6-10.4)
[2016-07-05] MEDS: Enoxaparin 40 mg Syringe SC SCH (09:59)
--- NOTE | 2016-07-05 13:27 | CP.PCM.PN ---
Objective - Vital Signs/Intake and Output Vital Signs (last 24 hours): Temp Pulse Resp BP Pulse Ox 97.9 F 84 20 122/61 95 07/05/16 07:00 07/05/16 08:24 07/05/16 07:00 07/05/16 09:59 07/05/16 07:00 Intake and Output: 07/05/16 07/05/16 06:59 18:59 Output Total 100 Balance -100 - Medications Medications: Current Medications Albuterol/Ipratropium (Duoneb 3 Mg/0.5 Mg (3 Ml) Ud) 3 ml INH RQ6 [facility] Last Admin: 07/05/16 07:57 Dose: 3 ml Digoxin (Lanoxin) 0.25 mg PO DAILY@1800 [facility] Last Admin: 07/04/16 17:55 Dose: 0.25 mg Diltiazem HCl (Cardizem) 30 mg PO Q8 [facility] Last Admin: 07/05/16 05:53 Dose: 30 mg Enoxaparin Sodium (Lovenox) 40 mg SC DAILY [facility] Last Admin: 07/05/16 09:59 Dose: 40 mg Furosemide (Lasix) 40 mg IVP DAILY [facility] Last Admin: 07/05/16 09:59 Dose: 40 mg Metoprolol Tartrate (Lopressor) 50 mg PO BID [facility] Last Admin: 07/05/16 09:59 Dose: 50 mg Spironolactone (Aldactone) 25 mg PO BID [facility] Last Admin: 07/05/16 09:59 Dose: 25 mg - Labs Labs: 07/05/16 08:13 07/05/16 08:13 PT 18.3 SECONDS (9.7-12.2) H 07/01/16 20:01 INR 1.6 07/01/16 20:01 APTT 29 SECONDS (21-34) 07/01/16 20:01
--- NOTE | 2016-07-05 13:27 | PCM.HF ---
Heart Failure Core Measure - Heart Failure Ejection Fraction: Less Than 40 % DULCE MARIA Inhibitor Prescribed: No Contraindication/Reason for not providing: bp low / on cardizem and digoxin for rate control Beta-Roseann Prescribed: Metoprolol Succinate Angiotensin II Receptor Roseann Prescribed: No Contraindication/Reason for not providing: bp low / on cardizem an ddigoxin for rate controll AnticoagulationTherapy for Atrial Fibrillation/Atrialflutter: No Contraindication/Reason for not providing: no hx Aldosterone Antagonist Prescribed: Yes Hydralazine Nitrate Prescribed: No Contraindication/Reason for not providing: on antiarrythmic drug Implantable Cardioverter Defibrillator Therapy: No Contraindication/Reason for not providing: on medical therapy as per trading floor operator 2nd to multiple co morbidities and Cardiac Resynchronization Therapy Prescribed: No Contraindication/Reason for not providing: on medical therapy as per trading floor operator due to multiple co morbiditeis - Follow up Will be discharged to: [facility] ([facility]) Follow Up Date (must be within 7 days from discharge): 07/08/16 Follow Up Time: 09:00
[2016-07-05 15:55] VITALS: BP 128/68; PULSE 81; RESP 22; TEMP 97.5; O2SAT 94
== END 2016-07-05 16:00 | disposition home or self-care (01) | DRG 433 ==
LOC: C.ER 15:28 → C.6T 22:43
PROVIDERS: ADMIT Internal Medicine Cardiovascular Disease; ATTEND Internal Medicine Cardiovascular Disease
DX: K74.69 Other cirrhosis of liver (principal); K76.6 Portal hypertension; R18.8 Other ascites; I11.0 Hypertensive heart disease with heart failure; I50.9 Heart failure, unspecified; I48.91 Unspecified atrial fibrillation; F10.10 Alcohol abuse, uncomplicated; G89.29 Other chronic pain; N50.89 Other specified disorders of the male genital organs; Z59.0 Homelessness; Z87.891 Personal history of nicotine dependence; Z91.19 Patient's noncompliance with other medical treatment and regimen; I25.10 Atherosclerotic heart disease of native coronary artery without angina pectoris; M79.662 Pain in left lower leg; M79.661 Pain in right lower leg

== ENCOUNTER 2017-04-03 14:57 | Emergency (ER) | payer MEDICARE, MEDICAID ==
[2017-04-03 14:58] VITALS: PULSE 84; BMI 31.1
[2017-04-03 15:44] VITALS: BP 150/68; PULSE 62; TEMP 97.5; O2SAT 98
[2017-04-03 15:55] LABS: INR 1.1; PROTHROMBIN TIME 12.8 SECONDS (9.7-12.2)
--- NOTE | 2017-04-03 17:03 | RAD ---
HISTORY: CHF COMPARISON: Chest x-ray performed 07/01/16 TECHNIQUE: Chest, one view. FINDINGS: Examination limited by habitus and hypoinflation. LUNGS: Mild pulmonary venous congestion. No focal consolidation. Please note that chest x-ray has limited sensitivity for the detection of pulmonary masses. PLEURA: No significant pleural effusion identified. No definite pneumothorax . CARDIOVASCULAR: Cardiomegaly. OSSEOUS STRUCTURES: Degenerative changes. Chronic appearing fracture deformity, left proximal humerus. VISUALIZED UPPER ABDOMEN: Unremarkable. OTHER FINDINGS: None. IMPRESSION: Cardiomegaly. Mild pulmonary venous congestion. Chronic appearing fracture deformity, left proximal humerus.
[2017-04-03 17:55] VITALS: RESP 20
--- NOTE | 2017-04-03 23:10 | C.PDOC ---
History Of Present Illness 66 y/o male presents to the ED for evaluation after being sent by Dr. Parra for admission. Patient denies any physical complaints at this time. Chief Complaint (Nursing): Medical Clearance History Per: Patient History/Exam Limitations: no limitations Onset/Duration Of Symptoms: Hrs Current Symptoms Are (Timing): Still Present Additional History Per: Patient Past Medical History Reviewed: Historical Data, Nursing Documentation, Vital Signs Vital Signs: Last Vital Signs Temp 97.5 F L 04/03/17 15:01 Pulse 62 04/03/17 15:01 Resp 20 04/03/17 17:54 BP 150/68 04/03/17 15:01 Pulse Ox 98 04/03/17 23:11 - Medical History PMH: Anemia, Anxiety, Atrial Fibrillation, Bronchitis, Cardia Arrhythmia (fib flutter), CHF, COPD, Gastritis, HTN, Pancreatitis, Pneumonia, Chronic Kidney Disease (renal insufficiency), Chronic Pain (Leg) Surgical History: No Surg Hx - [facility] Procedures DETOXIFICATION SERVICES FOR SUBSTANCE ABUSE TREATMENT (09/28/15) INSERTION OF INFUSION DEV INTO SUP VENA CAVA, PERC APPROACH (07/03/15) MEASURE CARDIAC SAMPL & PRESSURE, BILATERAL, PERC (06/09/15) PLAIN RADIOGRAPHY OF R & L HEART USING L OSM CONTRAST (06/09/15) ULTRASONOGRAPHY OF RIGHT AND LEFT HEART, TRANSESOPHAGEAL (06/09/15) Family History: States: Unknown Family Hx - Social History Hx Tobacco Use: Yes Hx Alcohol Use: Yes Hx Substance Use: No - Immunization History Hx Tetanus Toxoid Vaccination: No Hx Influenza Vaccination: No Hx Pneumococcal Vaccination: No Review Of Systems Constitutional: Positive for: Other (sent by Dr. Parra for admission ) Physical Exam - Physical Exam Appears: Non-toxic, No Acute Distress Skin: Normal Color, Warm, Dry Head: Atraumatic, Normacephalic Eye(s): bilateral: Normal Inspection Oral Mucosa: Moist Neck: Supple Chest: Symmetrical, No Deformity, No Tenderness Cardiovascular: Rhythm Regular, No Murmur Respiratory: Normal Breath Sounds, No Rales, No Rhonchi, No Wheezing Extremity: Normal ROM, Capillary Refill (less than 2 seconds ) Neurological/Psych: Oriented x3, Normal Speech, Normal Cognition Gait: Steady ED Course And Treatment ECG: Interpreted By Me, Viewed By Me ECG Rhythm: Sinus Bradycardia O2 Sat by Pulse Oximetry: 98 (on RA) Pulse Ox Interpretation: Normal - Other Rad CXR X-Ray: Interpreted by Me, Viewed By Me, Read By Radiologist Interpretation: HISTORY: CHF. COMPARISON: Chest x-ray performed 07/01/16. TECHNIQUE: Chest, one view. FINDINGS: Examination limited by habitus and hypoinflation. LUNGS: Mild pulmonary venous congestion. No focal consolidation. Please note that chest x-ray has limited sensitivity for the detection of pulmonary masses. PLEURA: No significant pleural effusion identified. No definite pneumothorax . CARDIOVASCULAR: Cardiomegaly. OSSEOUS STRUCTURES: Degenerative changes. Chronic appearing fracture deformity, left proximal humerus. VISUALIZED UPPER ABDOMEN: Unremarkable. OTHER FINDINGS: None. IMPRESSION: Cardiomegaly. Mild pulmonary venous congestion. Chronic appearing fracture deformity, left proximal humerus. Medical Decision Making Medical Decision Making: Progress; Upon ED arrival, patient states he does not wish to remain in the hospital. Patient refuses bloodwork. CXR and EKG ordered and reviewed. Disposition - Disposition Referrals: Lorenzo Parra MD [Staff Provider] - Disposition: HOME/ ROUTINE Disposition Time: 17:00 Condition: GOOD Additional Instructions: Thank you for letting us take care of you today. The emergency medical care you received today was directed at your acute symptoms. If you were prescribed any medication, please fill it and take as directed. It may take several days for your symptoms to resolve. Return to the Emergency Department if your symptoms worsen, do not improve, or if you have any other problems. Please contact your doctor or call one of the physicians/clinics you have been referred to that are listed on the Patient Visit Information form that is included in your discharge packet. Bring any paperwork you were given at discharge with you along with any medications you are taking to your follow up visit. Our treatment cannot replace ongoing medical care by a primary care provider (PCP) outside of the emergency department. Thank you for allowing the [facility] team to be part of your care today. Please follow up with Dr. Parra in 2-3 days for re-evaluation and further management. Instructions: Heart Failure (ED) Forms: [employer] (Thai) - Clinical Impression Clinical Impression: Systolic CHF with reduced left ventricular function, NYHA class 3 - Scribe Statement The provider has reviewed the documentation as recorded by the Scribe (ivan castillo) Provider Attestation: All medical record entries made by the Scribe were at my direction and personally dictated by me. I have reviewed the chart and agree that the record accurately reflects my personal performance of the history, physical exam, medical decision making, and the department course for this patient. I have also personally directed, reviewed, and agree with the discharge instructions and disposition.
--- NOTE | 2017-04-05 15:16 | CARD ---
APPROVED REPORT EKG Measurement Heart [id number] <Conclusion> Sinus bradycardia Otherwise normal ECG
== END 2017-04-03 17:53 | disposition home or self-care (01) ==
LOC: C.ER 14:57
DX: I50.20 Unspecified systolic (congestive) heart failure (principal)